=== PATIENT | male | born 1990 | race Caucasian/White ===

== ENCOUNTER 2024-11-01 21:45 | Emergency (ER) | payer OTHER ==
[~2024-11-01] VITALS: Ht 177.8 cm; Wt 88.5 kg
[2024-11-01 23:21] LABS: EOSINOPHILS 1.5 % (0-6)
[2024-11-01 23:23] LABS: BASOPHILS 1.5 % (0-2); HEMATOCRIT 45.2 % (35.0-50.0); LYMPHOCYTES 36.2 % (24-44); MCH 28.9 (27-36); MCHC 33.2 g/dl (30-36); MONOCYTES 6.6 % (0-12); NEUTROPHILS 54.2 % (39-80); PLATELET COUNT 255 K/uL (140-440); RBC 5.19 M/ul (4.3-5.7); RDW 14.4 (10.5-15.0)
[2024-11-01] MEDS ORDERED: DOXYCYCLINE HYCLATE 100 MG HOME.PACK PO ONE (23:45)
[2024-11-02 00:10] VITALS: BP 131/76
== END 2024-11-02 00:12 | disposition home or self-care (01) ==
LOC: ED 21:45
PROVIDERS: Family Medicine
DX: L98.9 Disorder of the skin and subcutaneous tissue, unspecified (principal)
CPT/HCPCS: 36415; 84550; 85025; 86140; 99283; A9270